=== PATIENT | female | born 1945 | race Caucasian/White ===

== ENCOUNTER → 2016-12-31 | Outpatient (CLI) | payer MEDICARE, BC ==
[~2016-12-31] VITALS: Ht 172.7 cm; Wt 111.6 kg
[~2016-12-31] MED LIST: /ESCI20TA PO; /ONDA4TA OR; /WARF25TA OR; /WARF5TA OR; ACET65TA OR; ACETAMINOPHEN TAB 650MG DOSE (2X325MG) PO PRN; AMBI5TAB PO; AMITIZA OR; BUPR150T3 PO; EPIDURAL/PCA KEYS XX PRN; FLEET ENEMA PR PRN; LEVO175T2 PO; LEVO75TA2 OR; LEXA1TAB PO; LIDOCAINE 2% INJ 100 MG/5 ML SDV (FOR ANES.) As Ordered ONE; LR 1,000 ML IV SCH; LUNE2TAB OR; MORPHINE PCA 1MG/ML 100ML CADD IV PRN; NALBUPHINE HCL 10 MG/ML AMP (J2300) IV PRN; NALOXONE INJ 0.4 MG/1 ML VIAL (J2310) IV PRN; NS 1,000 ML IV SCH; ONDANSETRON 4MG/2ML VIAL (J2405) IV PRN; PERC5TAB8 OR; PERC7.5T8 OR; PROPOFOL 200 MG/20 ML VIAL As Ordered ONE; SYMB80AE IN; TRILIPIX OR; VICO5TAB PO; WARFARIN SOD 5 MG TAB PO SCH; diphenhydrAMINE INJ 50MG/ML VIAL (J1200) IV PRN; meloxicam PO; symbicort INH
--- NOTE | 2016-12-31 11:50 | ROOR ---
Patient Name: Katya Bocanegra Procedure Date: 12/31/2016 11:32 AM Date of : 1945 Age: 71 Room: [facility] Gender: Female Note Status: Finalized Procedure: Upper GI endoscopy Indications: Chest pain (non cardiac), (resolved) Providers: Ender VELÁZQUEZ MD Referring MD: MATT NEVES NP Requesting Provider: Medicines: Monitored Anesthesia Care Complications: No immediate complications. Procedure: Pre-Anesthesia Assessment: - The heart rate, respiratory rate, oxygen saturations, blood pressure, adequacy of pulmonary ventilation, and response to care were monitored throughout the procedure. The Endoscope was introduced through the mouth, and advanced to the second part of duodenum. The upper GI endoscopy was accomplished without difficulty. The patient tolerated the procedure well. Findings: Mildly severe esophagitis was found 37 cm from the incisors. Biopsies were taken with a cold forceps for histology. The exam of the esophagus was otherwise normal. The entire examined stomach was normal. There was a lipoma in the second portion of the duodenum. Biopsies were taken with a cold forceps for histology. Mild inflammation characterized by erythema was found in the second portion of the duodenum. Biopsies were taken with a cold forceps for histology. Impression: - Mild reflux esophagitis. Biopsied. - Normal stomach. - Duodenal lipoma. Biopsied. - Mild Duodenitis. Biopsied. Recommendation: - Telephone endoscopist for pathology results in 2 weeks. - Use Prilosec (omeprazole) 40 mg PO daily for 3 months. Ender Velázquez MD Ender VELÁZQUEZ MD 12/31/2016 11:50:04 AM This report has been signed electronically. Number of Addenda: 0 Note Initiated On: 12/31/2016 11:32 AM Estimated Blood Loss: Estimated blood loss: none.
--- NOTE | 2016-12-31 12:11 | ROOR ---
Patient Name: Katya Bocanegra Procedure Date: 12/31/2016 11:33 AM Date of : 1945 Age: 71 Room: [facility] Gender: Female Note Status: Finalized Procedure: Colonoscopy Indications: High risk colon cancer surveillance: Personal history of colonic polyps, Last colonoscopy: August 2011 Providers: Ender VELÁZQUEZ MD Referring MD: MATT NEVES NP Requesting Provider: Medicines: Monitored Anesthesia Care Complications: No immediate complications. Procedure: Pre-Anesthesia Assessment: - The heart rate, respiratory rate, oxygen saturations, blood pressure, adequacy of pulmonary ventilation, and response to care were monitored throughout the procedure. The Colonoscope was introduced through the anus and advanced to the cecum, identified by appendiceal orifice and ileocecal valve. The colonoscopy was performed without difficulty. The patient tolerated the procedure well. The quality of the bowel preparation was good. Findings: The perianal and digital rectal examinations were normal. (Exam: Complete, Prep: Good or Excellent.) Two sessile polyps were found in the ascending colon. The polyps were 4 to 5 mm in size. These polyps were removed with a cold snare. Resection and retrieval were complete. Multiple small and large-mouthed diverticula were found in the sigmoid colon. Internal hemorrhoids were found during retroflexion. The hemorrhoids were moderate. Impression: - (Exam: Complete, Prep: Good or Excellent.) - Two 4 to 5 mm polyps in the ascending colon, removed with a cold snare. Resected and retrieved. - Diverticulosis in the sigmoid colon. - Small internal hemorrhoids. - The examination was otherwise normal. Recommendation: - Repeat colonoscopy in 5 years for surveillance. Ender Velázquez MD Ender VELÁZQUEZ MD 12/31/2016 12:11:21 PM This report has been signed electronically. Number of Addenda: 0 Note Initiated On: 12/31/2016 11:33 AM Estimated Blood Loss: Estimated blood loss: none.
[2016-12-31 12:35] VITALS: BP 157/77
== END | disposition home or self-care (01) ==
LOC: M OPP 10:33
PROVIDERS: ATTEND Internal Medicine Gastroenterology
DX: Z12.11 Encounter for screening for malignant neoplasm of colon (principal); D12.2 Benign neoplasm of ascending colon; K57.30 Diverticulosis of large intestine without perforation or abscess without bleeding; K64.8 Other hemorrhoids; K20.9 Esophagitis, unspecified; D13.2 Benign neoplasm of duodenum; K29.80 Duodenitis without bleeding; I05.9 Rheumatic mitral valve disease, unspecified; M19.90 Unspecified osteoarthritis, unspecified site; E03.9 Hypothyroidism, unspecified; L71.9 Rosacea, unspecified; L40.9 Psoriasis, unspecified; F33.9 Major depressive disorder, recurrent, unspecified; F41.9 Anxiety disorder, unspecified; Z87.891 Personal history of nicotine dependence; Z79.899 Other long term (current) drug therapy; Z88.8 Allergy status to other drugs, medicaments and biological substances; Z88.1 Allergy status to other antibiotic agents; Z91.048 Other nonmedicinal substance allergy status

== ENCOUNTER 2017-06-27 07:16 | Day surgery (SDC) | payer MEDICARE, BC ==
[~2017-06-27] VITALS: Ht 172.7 cm; Wt 111.6 kg
[~2017-06-27 07:16] MED LIST changes: -ACETAMINOPHEN TAB 650MG DOSE (2X325MG) PO PRN; +ALPR0.5T3 PO; -EPIDURAL/PCA KEYS XX PRN; -FLEET ENEMA PR PRN; +LEVO2TA PO; -LIDOCAINE 2% INJ 100 MG/5 ML SDV (FOR ANES.) As Ordered ONE; -LR 1,000 ML IV SCH; -MORPHINE PCA 1MG/ML 100ML CADD IV PRN; -NALBUPHINE HCL 10 MG/ML AMP (J2300) IV PRN; -NALOXONE INJ 0.4 MG/1 ML VIAL (J2310) IV PRN; -NS 1,000 ML IV SCH; +OMEP40CA2 PO; -ONDANSETRON 4MG/2ML VIAL (J2405) IV PRN; -PROPOFOL 200 MG/20 ML VIAL As Ordered ONE; -WARFARIN SOD 5 MG TAB PO SCH; -diphenhydrAMINE INJ 50MG/ML VIAL (J1200) IV PRN
[2017-06-27] MEDS ORDERED: LIDOCAINE 1% SDV 5 ML VIAL SC ONE (07:30)
[2017-06-27] MEDS ORDERED: LR 1,000 ML IV SCH ×2 (07:30→11:00)
[2017-06-27] MEDS ORDERED: SUCCINYLCHOLINE 100 MG/5 ML SYRINGE (J0330) As Ordered ONE (08:52)
[2017-06-27] MEDS ORDERED: MIDAZOLAM INJ 2 MG/2 ML VIAL (J2250) As Ordered ONE (08:52)
[2017-06-27] MEDS ORDERED: PROPOFOL 200 MG/20 ML VIAL As Ordered ONE (08:52)
[2017-06-27] MEDS ORDERED: LIDOCAINE 2% INJ 100 MG/5 ML SDV (FOR ANES.) As Ordered ONE (08:52)
[2017-06-27] MEDS ORDERED: fentaNYL 100 MCG/2 ML INJECTION (J3010) As Ordered ONE (08:53)
--- NOTE | 2017-06-27 10:27 | ROOR ---
Patient Name: Katya Bocanegra Procedure Date: 06/27/2017 9:38 AM Date of : 1945 Age: 71 Room: [facility] Gender: Female Note Status: Finalized Procedure: Upper GI endoscopy Indications: For therapy of Carl's esophagus, Carl's low grade dysplasia Providers: Ender VELÁZQUEZ MD Referring MD: MATT NEVES NP, Ilana MOSER MD Requesting Provider: Medicines: General Anesthesia Complications: No immediate complications. Procedure: Pre-Anesthesia Assessment: - The heart rate, respiratory rate, oxygen saturations, blood pressure, adequacy of pulmonary ventilation, and response to care were monitored throughout the procedure. The Endoscope was introduced through the mouth, and advanced to the second part of duodenum. The upper GI endoscopy was accomplished without difficulty. The patient tolerated the procedure well. 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 The maximum longitudinal extent of these mucosal changes was 2 cm in length. Circumferential radiofrequency ablation of Carl's esophagus was performed using the Barrx 360 Express catheter and balloon-based endoscopic ablation system. With the endoscope in place, the position and extent of the Carl's mucosa and the anatomic landmarks were noted. Endoscopic visualization identified an ablation site including the entire visible Carl's segment. The Carl's mucosa was irrigated with water. Gastric and esophageal contents were suctioned. A guidewire was passed down the biopsy channel of the endoscope. As the endoscope was withdrawn from the mouth, the guidewire was left in place. An auto-sizing radiofrequency ablation balloon catheter was passed transorally over the guidewire into the esophagus. The endoscope was introduced in a [id number] manner with the ablation catheter. Under direct endoscopic visualization, the balloon ablation catheter was positioned so that the proximal edge of the electrode was slightly above the proximal edge of the Carl's mucosa. The balloon was automatically inflated, and energy was applied at 10 J/cm2. The balloon electrode was moved 4 cm distally, so that the proximal edge of the electrode was aligned with the distal edge of the ablation zone. The process of balloon inflation and ablation was repeated until the top of the gastric folds was reached. The ablation catheter and guidewire were removed, and the balloon was cleaned. The ablation zone was then cleaned of overlying coagulative debris using irrigation and suction via the endoscope and a cleaning cap. The guidewire was reinserted, and then the ablation catheter was reintroduced into the esophagus over the wire. The ablation catheter was positioned under direct endoscopic visualization so that the proximal edge of the electrode was at the proximal edge of the ablation zone. Reinflation and a second round of ablation were performed with the application of 10 J/cm2 to re-treat the Carl's epithelium already treated with the first round of ablation. The ablation catheter and guidewire were then removed. The areas of the esophagus where Carl's mucosa had been ablated were then examined with the endoscope. Areas of visible Carl's esophagus were completely ablated. The exam was otherwise without abnormality. Impression: - Esophageal mucosal changes secondary to established short-segment Carl's disease. from 41 to 39 cm fron incisors. Barretts is smooth, without nodularity. Treated with radiofrequency ablation. - The examination was otherwise normal. - No specimens collected. Recommendation: - Repeat upper endoscopy in 2 months for retreatment. - Use Prilosec (omeprazole) 40 mg PO BID indefinitely. - My Office will call you shortly to re-schedule for the next treatment session. Start a full liquid diet today. Eat a soft diet for one week. Continue your usual Reflux medication twice a day indefinitely. You may not need pain medications, but I would recommend you fill the scripts provided, just in case: 1) Viscous Lidocaine 2%- 10 ml every 4 hrs as needed for modeate chest pain. 2) Carafate suspension-10 ml every 6-8 hrs for 1 month. Ender Velázquez MD Ender VELÁZQUEZ MD 06/27/2017 10:27:31 AM This report has been signed electronically. Number of Addenda: 0 Note Initiated On: 06/27/2017 9:38 AM Estimated Blood Loss: Estimated blood loss: none.
[2017-06-27] MEDS ORDERED: ONDANSETRON 4MG/2ML VIAL (J2405) IV PRN (11:00)
[2017-06-27] MEDS ORDERED: PERCOCET 5MG/325MG TAB PO PRN (11:00)
[2017-06-27] MEDS ORDERED: fentaNYL 100 MCG/2 ML INJECTION (J3010) IV PRN (11:00)
[2017-06-27 11:55] VITALS: BP 164/70
== END 2017-06-27 12:05 | disposition home or self-care (01) ==
LOC: M SDC 07:16 → EDSTATUS 08:25 → M SDC 12:05
PROVIDERS: ATTEND Internal Medicine Gastroenterology
DX: K22.710 Barrett's esophagus with low grade dysplasia (principal); E03.9 Hypothyroidism, unspecified; M12.9 Arthropathy, unspecified; M54.9 Dorsalgia, unspecified; L71.9 Rosacea, unspecified; F41.9 Anxiety disorder, unspecified; F32.9 Major depressive disorder, single episode, unspecified; R06.83 Snoring; J45.909 Unspecified asthma, uncomplicated; I35.9 Nonrheumatic aortic valve disorder, unspecified; G47.30 Sleep apnea, unspecified; J30.2 Other seasonal allergic rhinitis; Z88.1 Allergy status to other antibiotic agents; Z88.8 Allergy status to other drugs, medicaments and biological substances; Z91.09 Other allergy status, other than to drugs and biological substances; Z91.048 Other nonmedicinal substance allergy status; Z79.899 Other long term (current) drug therapy; Z90.710 Acquired absence of both cervix and uterus; Z96.1 Presence of intraocular lens; Z96.641 Presence of right artificial hip joint; Z96.652 Presence of left artificial knee joint
CPT/HCPCS: 43270; J0330; J2250; J2405; J3010

== ENCOUNTER → 2017-07-10 | Outpatient (CLI) | payer MEDICARE, BC ==
--- NOTE | 2017-07-10 11:21 | REP ---
MAXILLOFACIAL CT WITHOUT CONTRAST: HISTORY: Smell disturbance. Diffuse sinus mucosal thickening is present. There is almost complete opacification of the frontal , ethmoid and right maxillary sinuses. Mild mucosal thickening is present in the left maxillary sinus. Minimal mucosal thickening is present in the left sphenoid sinus. The right sphenoid sinus is clear. Mucosal thickening involves the osteomeatal units. The uncinate processes are incompletely seen. This is due to previous surgery or demineralization secondary to chronic inflammatory disease. The middle and inferior nasal turbinates are partially paradoxical. There is mild deviation of the nasal septum to the left. The nasal septum abuts the left middle nasal turbinate. A spur is present arising from the left side of the nasal septum. The spur abuts the left middle and inferior nasal turbinates. A spur is present arising from the right side of the nasal septum. The spur abuts the right middle nasal turbinate. The cribriform plate, medial nair of the orbits and optic canals are intact. The carotid canals do not form a segment of the nair of the sphenoid sinus. Soft tissue densities are present in the nasal passage consistent with polyps. IMPRESSION: 1. Sinus mucosal thickening as described above. 2. There are soft tissue densities in the nasal passage consistent with polyps. Signed by Richard Burrows MD 07/10/2017 11:30 A
== END ==
LOC: M RAD 10:34
PROVIDERS: ATTEND Otolaryngology
DX: R43.9 Unspecified disturbances of smell and taste (principal)

== ENCOUNTER 2017-12-03 06:01 | Day surgery (SDC) | payer MEDICARE, BC ==
[2017-12-03] MEDS: LR 1,000 ML IV ×2 (06:30→12:15)
[2017-12-03] MEDS ORDERED: ROCURONIUM BROMIDE 50 MG/5 ML VIAL As Ordered (07:06)
[2017-12-03] MEDS ORDERED: PROPOFOL 200 MG/20 ML VIAL As Ordered ×2 (07:06→09:52)
[2017-12-03] MEDS ORDERED: LIDOCAINE 2% INJ 100 MG/5 ML SDV (FOR ANES.) As Ordered (07:06)
[2017-12-03] MEDS ORDERED: fentaNYL 250 MCG/5 ML INJECTION (J3010) As Ordered ×2 (07:07→09:22)
[2017-12-03] MEDS ORDERED: MIDAZOLAM INJ 2 MG/2 ML VIAL (J2250) As Ordered (07:07)
[2017-12-03] MEDS: LIDOCAINE W/EPINEPHRINE 1% 20ML VIAL As Ordered ×2 (08:51→08:54)
[2017-12-03] MEDS: EPINEPHrine 1MG/ML INJ 30ML MD-VIAL As Ordered ×2 (08:52→08:53)
[2017-12-03] MEDS: METHYLENE BLUE 0.5% (5MG/ML) 10 ML AMP (PROVAYBLUE)(Q9968 PER 1MG) As Ordered (08:52)
[2017-12-03] MEDS: dexameTHASONE 4 MG/ML 1ML VIAL (J1100) IV (08:53)
[2017-12-03] MEDS ORDERED: HYDROmorphone HCL 2 MG/ML 1ML VIAL (J1170) As Ordered (09:38)
[2017-12-03] MEDS ORDERED: NEOSTIGMINE 10 MG/10 ML VIAL (J2710) As Ordered (09:41)
[2017-12-03] MEDS ORDERED: ONDANSETRON 4MG/2ML VIAL (J2405) As Ordered (09:41)
[2017-12-03] MEDS ORDERED: GLYCOPYRROLATE INJ 0.2 MG/ML 2 ML VIAL As Ordered (09:41)
[2017-12-03] MEDS ORDERED: LABETALOL HCL 100 MG/20 ML VIAL As Ordered (10:15)
[2017-12-03] MEDS ORDERED: PHENYLephrine HCL 500 MCG/5 ML (100MCG/ML) SYRINGE (J2370) As Ordered (10:31)
[2017-12-03] MEDS ORDERED: MEPERIDINE INJ 25 MG/ML VIAL (J2175) IV (12:15)
[2017-12-03] MEDS ORDERED: KETOROLAC 30 MG/ML VIAL (J1885) IV (12:15)
[2017-12-03] MEDS ORDERED: ONDANSETRON 4MG/2ML VIAL (J2405) IV (12:15)
[2017-12-03] MEDS ORDERED: LR 1,000 ML IV (12:30)
[2017-12-03] MEDS: PERCOCET 5MG/325MG TAB PO ×2 (12:39→13:10)
[2017-12-03] MEDS: fentaNYL 100 MCG/2 ML INJECTION (J3010) IV ×2 (12:50→12:55)
== END 2017-12-03 15:12 | disposition home or self-care (01) ==
LOC: M SDC 06:01
DX: J34.2 Deviated nasal septum (principal); J32.0 Chronic maxillary sinusitis; J32.2 Chronic ethmoidal sinusitis; J32.1 Chronic frontal sinusitis; E03.9 Hypothyroidism, unspecified; I34.1 Nonrheumatic mitral (valve) prolapse; K22.70 Barrett's esophagus without dysplasia; K58.9 Irritable bowel syndrome, unspecified; M19.90 Unspecified osteoarthritis, unspecified site; M54.9 Dorsalgia, unspecified; L71.9 Rosacea, unspecified; F41.9 Anxiety disorder, unspecified; F32.9 Major depressive disorder, single episode, unspecified; J45.909 Unspecified asthma, uncomplicated; G47.30 Sleep apnea, unspecified; Z88.8 Allergy status to other drugs, medicaments and biological substances; Z88.1 Allergy status to other antibiotic agents; Z88.3 Allergy status to other anti-infective agents; Z91.048 Other nonmedicinal substance allergy status
CPT/HCPCS: 30520

== ENCOUNTER 2018-01-09 05:47 | Day surgery (SDC) | payer MEDICARE, BC ==
[2018-01-09] MEDS ORDERED: LIDOCAINE 1% MDV 20ML VIAL SQ (06:30)
[2018-01-09] MEDS: LR 1,000 ML IV (07:15)
[2018-01-09] MEDS ORDERED: fentaNYL 100 MCG/2 ML INJECTION (J3010) As Ordered (07:23)
[2018-01-09] MEDS ORDERED: MIDAZOLAM INJ 2 MG/2 ML VIAL (J2250) As Ordered (07:23)
[2018-01-09] MEDS ORDERED: ONDANSETRON 4MG/2ML VIAL (J2405) As Ordered (07:23)
[2018-01-09] MEDS ORDERED: METOCLOPRAMIDE INJ 10MG/2ML VIAL (J2765) As Ordered (07:23)
[2018-01-09] MEDS ORDERED: PROPOFOL 200 MG/20 ML VIAL As Ordered (07:24)
[2018-01-09] MEDS ORDERED: LIDOCAINE 2% INJ 100 MG/5 ML SDV (FOR ANES.) As Ordered (07:24)
[2018-01-09] MEDS ORDERED: SUCCINYLCHOLINE 100 MG/5 ML SYRINGE (J0330) As Ordered (07:24)
[2018-01-09] MEDS ORDERED: ROCURONIUM BROMIDE 50 MG/5 ML VIAL As Ordered (07:24)
[2018-01-09] MEDS ORDERED: SIMETHICONE 40MG/0.6ML DROPS 30ML As Ordered (07:25)
[2018-01-09] MEDS: ACETYLCYSTEINE 20% 30 ML VIAL As Ordered (08:01)
[2018-01-09] MEDS ORDERED: KETAMINE HCL 200 MG/20 ML VIAL As Ordered (08:07)
[2018-01-09] MEDS ORDERED: PERCOCET 5MG/325MG TAB PO (08:45)
[2018-01-09] MEDS ORDERED: LR 1,000 ML IV (08:45)
[2018-01-09] MEDS ORDERED: fentaNYL 100 MCG/2 ML INJECTION (J3010) IV (08:45)
[2018-01-09] MEDS: ONDANSETRON 4MG/2ML VIAL (J2405) IV (09:40)
== END 2018-01-09 10:15 | disposition home or self-care (01) ==
LOC: M SDC 05:47
DX: K22.710 Barrett's esophagus with low grade dysplasia (principal); D17.9 Benign lipomatous neoplasm, unspecified; E03.9 Hypothyroidism, unspecified; J45.909 Unspecified asthma, uncomplicated; F32.9 Major depressive disorder, single episode, unspecified; K58.9 Irritable bowel syndrome, unspecified; M19.90 Unspecified osteoarthritis, unspecified site; L71.9 Rosacea, unspecified; L40.9 Psoriasis, unspecified; F41.9 Anxiety disorder, unspecified; R51 Headache; G47.30 Sleep apnea, unspecified; Z88.8 Allergy status to other drugs, medicaments and biological substances; Z88.3 Allergy status to other anti-infective agents; Z91.048 Other nonmedicinal substance allergy status; Z88.1 Allergy status to other antibiotic agents; Z79.899 Other long term (current) drug therapy
CPT/HCPCS: 43270

== ENCOUNTER → 2020-10-05 | Outpatient (REF) | payer MEDICARE, BC ==
[~2020-10-05] MED LIST changes: -/ESCI20TA PO; -/ONDA4TA OR; -/WARF25TA OR; -/WARF5TA OR; +AMOX500T PO; +COUM1TAB17 OR; +COUM1TAB18 OR; +FLUTISP; +LEXA1TAB2 PO; +LOTE0.5S OU; -OMEP40CA2 PO; +OMEP40CA97 PO; +ONDA-1 OR; +XIID5DRO OU
== END ==
LOC: M LAB REF 13:09
PROVIDERS: ATTEND Radiology Diagnostic Radiology
DX: D24.2 Benign neoplasm of left breast (principal)

== ENCOUNTER → 2021-02-26 | Outpatient (CLI) | payer MEDICARE, BC ==
[~2021-02-26] MED LIST changes: +BUPR150T12 PO; -BUPR150T3 PO
--- NOTE | 2021-02-26 17:12 | REP ---
INDICATION: PAIN IN RIGHT FINGER(S) COMPARISON: None. TECHNIQUE: Four views right 5th digit. FINDINGS: There is no evidence of acute fracture, dislocation, or intrinsic bone disease.There is mild spurring of the base of the distal phalanx. IMPRESSION: No fracture or dislocation. Mild spurring base of distal phalanx. <Electronically signed by Orville Corea > 02/26/21 [id number]
== END ==
LOC: M RAD 15:46
PROVIDERS: ATTEND Physician Assistant
DX: M79.644 Pain in right finger(s) (principal)

== ENCOUNTER → 2021-04-20 | Outpatient (CLI) | payer MEDICARE, BC | LOC: M LABSMTC 10:34 | PROVIDERS: ATTEND Ophthalmology | DX: Z01.812 Encounter for preprocedural laboratory examination (principal); Z20.822 Contact with and (suspected) exposure to COVID-19 ==

== ENCOUNTER → 2021-05-01 | Outpatient (CLI) | payer MEDICARE, BC ==
--- NOTE | 2021-05-01 13:14 | REPPI ---
INDICATION: L40.0 PSORIASIS VULGARIS. COMPARISON: Portable examination of 08/12/2016 TECHNIQUE: PA and lateral FINDINGS: The superior mediastinal structures are midline. The cardiac silhouette is unremarkable in size, shape, and position. The diaphragmatic surfaces of the lungs are regular, and the costophrenic angles are clear. The pulmonary gross are clear. The imaged osseous structures are intact. IMPRESSION: There is no acute cardiopulmonary disease. <Electronically signed by Abelino Guardado > 05/01/21 [id number]
== END ==
LOC: M PLAIMG 12:08
PROVIDERS: ATTEND Nurse Practitioner
DX: L40.0 Psoriasis vulgaris (principal)

== ENCOUNTER → 2021-10-25 | Outpatient (CLI) | payer MEDICARE, BC ==
[~2021-10-25] MED LIST changes: +OMEP40CA4 PO; -OMEP40CA97 PO
--- NOTE | 2021-10-25 11:13 | REPVR ---
PROCEDURE INFORMATION: Exam: CT Lumbar Spine Without Contrast Exam date and time: 10/25/2021 10:28 AM Age: 76 years old Clinical indication: Low back pain; Additional info: Pain in RT hip, RT shoulder pain, lbp pain TECHNIQUE: Imaging protocol: Computed tomography images of the lumbar spine without contrast. Radiation optimization: All CT scans at this facility use at least one of these dose optimization techniques: automated exposure control; mA and/or kV adjustment per patient size (includes targeted exams where dose is matched to clinical indication); or iterative reconstruction. COMPARISON: No relevant prior studies available. FINDINGS: Vertebrae: There is 4 mm of grade 1 retrolisthesis of L3 with respect to L4 and L5 with respect to S1. Normal vertebral body alignment is otherwise preserved. There is an L2 superior endplate fracture with minimal loss of height. No other fractures are identified. Discs/Spinal canal/Neural foramina: There is multilevel degenerative disc disease and spondylosis. At L1/2, disc osteophyte complex and facet hypertrophy contribute to mild canal stenosis. At L2/3, disc osteophyte complex and facet hypertrophy contribute to mild canal stenosis and mild bilateral neural foraminal narrowing. At L3/4, disc osteophyte complex/uncovering related to listhesis and facet hypertrophy contribute to moderate right and mild left neural foraminal narrowing and moderate canal stenosis. At L4/5, diffuse disc osteophyte complex and facet hypertrophy contribute to mild right and moderate left neural foraminal narrowing and mild canal stenosis. At L5/S1, disc osteophyte complex and facet hypertrophy contribute to moderate bilateral neural foraminal narrowing. Soft tissues: Unremarkable. IMPRESSION: 1. L2 superior endplate fracture with minimal loss of height. 2. Multilevel degenerative disc disease and spondylosis. Electronically signed by: Clementina Stovall On 10/25/2021 11:13:26 AM
--- NOTE | 2021-10-25 11:23 | REP ---
INDICATION: PAIN IN RT HIP, RT SHOULDER PAIN, LBP PAIN. COMPARISON: None. TECHNIQUE: Axial noncontrast images through the right shoulder with coronal and sagittal reformations. FINDINGS: Moderate age-related degenerative changes include subchondral cystic changes along with subtle cortical irregularity and mild spurring/osteophyte formation as well as mild joint space narrowing. Periarticular calcifications are also identified at the acromioclavicular joint. There is no obvious acute fracture or dislocation. No obvious joint effusion. Surrounding musculature appears intact and essentially normal. 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 No obvious acute fracture. <Electronically signed by Vega Yu > 10/25/21 [id number]
--- NOTE | 2021-10-25 11:27 | REP ---
INDICATION: PAIN IN RT HIP, RT SHOULDER PAIN, LBP PAIN. COMPARISON: None. TECHNIQUE: Axial noncontrast images through the right hip including metallic artifact reduction sequence as well as coronal and sagittal reformations. FINDINGS: Evidence for prior right hip replacement. Underlying age-related osteopenia and degenerative changes noted. No obvious acute fracture. No obvious effusion. Surrounding subcutaneous tissues and musculature appear essentially normal. IMPRESSION: Prior right hip replacement. Underlying osteopenia and age-related changes. No evidence for acute fracture or dislocation. <Electronically signed by Vega Yu > 10/25/21 [id number]
== END ==
LOC: M RAD 09:57
PROVIDERS: ATTEND Physician Assistant Surgical
DX: S32.029A Unspecified fracture of second lumbar vertebra, initial encounter for closed fracture (principal); M25.511 Pain in right shoulder; M54.50 Low back pain, unspecified; Z96.641 Presence of right artificial hip joint

== ENCOUNTER → 2022-02-07 | Outpatient (CLI) | payer MEDICARE, BC ==
[~2022-02-07] MED LIST changes: +GASTROGRAFIN SOLUTION 30ML (Q9963) ONE; +ISOVUE-370 76% 100ML VIAL ONE
== END ==
LOC: M PLAIMG 12:16
PROVIDERS: ATTEND Registered Nurse
DX: R93.5 Abnormal findings on diagnostic imaging of other abdominal regions, including retroperitoneum (principal); R11.2 Nausea with vomiting, unspecified; R19.4 Change in bowel habit; R63.4 Abnormal weight loss
CPT/HCPCS: 74178; Q9963; Q9967

== ENCOUNTER 2022-02-21 07:16 | Emergency (ER) | payer MEDICARE, BC ==
[~2022-02-21] VITALS: Ht 170.2 cm; Wt 111.4 kg
[~2022-02-21 07:16] MED LIST changes: -GASTROGRAFIN SOLUTION 30ML (Q9963) ONE; -ISOVUE-370 76% 100ML VIAL ONE
[2022-02-21] MEDS ORDERED: BOOSTRIX/ADACEL VACCINE (DIPHTH/PERTUSS/ACELL/TETANUS) 0.5ML SYR IM ONE (08:30)
[2022-02-21] MEDS ORDERED: NORCO, ANEXSIA 5/325MG TABLET (HYDROcodone/ACETAMINOPHEN) PO ONE (08:30)
[2022-02-21 09:45] VITALS: BP 142/68
== END 2022-02-21 09:46 | disposition home or self-care (01) ==
LOC: M ED 07:16
DX: S01.01XA Laceration without foreign body of scalp, initial encounter (principal); S20.229A Contusion of unspecified back wall of thorax, initial encounter; W18.30XA Fall on same level, unspecified, initial encounter; Y92.012 Bathroom of single-family (private) house as the place of occurrence of the external cause; J45.909 Unspecified asthma, uncomplicated; E07.9 Disorder of thyroid, unspecified; F33.9 Major depressive disorder, recurrent, unspecified; I34.1 Nonrheumatic mitral (valve) prolapse; Z88.1 Allergy status to other antibiotic agents; Z88.8 Allergy status to other drugs, medicaments and biological substances; Z91.048 Other nonmedicinal substance allergy status; Z79.899 Other long term (current) drug therapy; Z79.890 Hormone replacement therapy

== ENCOUNTER → 2022-02-22 | Outpatient (CLI) | payer MEDICARE, BC ==
[2022-02-22 12:13] LABS: PLATELET COUNT, AUTOMATED 244 10^3/uL (150-450)
[2022-02-22 12:24] LABS: PROTHROMBIN TIME 13.6 SECONDS (12.7-14.5)
[2022-02-22 12:57] LABS: COLLAGEN EPINEPHRINE 131 SECONDS (74-162)
== END ==
LOC: M LAB 11:20
PROVIDERS: ATTEND Physician Assistant Surgical
DX: M51.36 Other intervertebral disc degeneration, lumbar region (principal); Z79.01 Long term (current) use of anticoagulants

== ENCOUNTER → 2022-03-20 | Outpatient (CLI) | payer MEDICARE, BC ==
[~2022-03-20] MED LIST changes: +PROHANCE 279.3MG/ML 15ML VIAL As Ordered ONE; +PROHANCE 279.3MG/ML 5ML VIAL As Ordered ONE
== END ==
LOC: M RAD 14:33
PROVIDERS: ATTEND Registered Nurse
DX: R93.5 Abnormal findings on diagnostic imaging of other abdominal regions, including retroperitoneum (principal)
CPT/HCPCS: 72197; A9576

== ENCOUNTER → 2022-04-04 | Outpatient (CLI) | payer MEDICARE, BC ==
[~2022-04-04] MED LIST changes: -PROHANCE 279.3MG/ML 15ML VIAL As Ordered ONE; -PROHANCE 279.3MG/ML 5ML VIAL As Ordered ONE
== END ==
LOC: M WHC 08:16
PROVIDERS: ATTEND Registered Nurse
DX: N64.4 Mastodynia (principal); Z78.0 Asymptomatic menopausal state; Z80.9 Family history of malignant neoplasm, unspecified
CPT/HCPCS: 77066; G0279

== ENCOUNTER → 2022-05-16 | Outpatient (REF) | payer MEDICARE, BC ==
[2022-05-16 13:44] LABS: HEPATITIS C VIRUS ABY INDEX 0.1 INDEX (<0.8)
[2022-05-16 14:50] LABS: HIV 1&2 SCREEN CENTAUR NEGATIVE (NEGATIVE)
== END ==
LOC: M LAB REF 11:59
PROVIDERS: ATTEND Internal Medicine
DX: L40.0 Psoriasis vulgaris (principal)

== ENCOUNTER → 2022-05-17 | Outpatient (CLI) | payer MEDICARE, BC | LOC: M RAD 10:58 | PROVIDERS: ATTEND Family Medicine | DX: L40.0 Psoriasis vulgaris (principal) ==

== ENCOUNTER → 2022-06-21 | Outpatient (CLI) | payer MEDICARE, BC | LOC: M RAD 12:42 | PROVIDERS: ATTEND Obstetrics & Gynecology | DX: D39.10 Neoplasm of uncertain behavior of unspecified ovary (principal) ==

== ENCOUNTER → 2022-08-13 | Outpatient (CLI) | payer MEDICARE, BC | LOC: M LAB 12:45 | PROVIDERS: ATTEND Obstetrics & Gynecology Obstetrics | DX: R19.00 Intra-abdominal and pelvic swelling, mass and lump, unspecified site (principal) ==

== ENCOUNTER → 2022-11-06 | Outpatient (CLI) | payer MEDICARE, BC | LOC: M RAD 09:43 | PROVIDERS: ATTEND Registered Nurse | DX: M79.641 Pain in right hand (principal) ==

== ENCOUNTER → 2022-11-06 | Outpatient (CLI) | payer MEDICARE, BC ==
[2022-11-06 11:06] LABS: BLOOD UREA NITROGEN 18 MG/DL (9-23); CREATININE FOR GFR 0.72 MG/DL (0.55-1.30); GLOMERULAR FILTRATION RATE > 60.0 (>39)
== END ==
LOC: M LAB 09:47
PROVIDERS: ATTEND Physical Medicine & Rehabilitation
DX: M51.36 Other intervertebral disc degeneration, lumbar region (principal); M51.26 Other intervertebral disc displacement, lumbar region; M47.896 Other spondylosis, lumbar region

== ENCOUNTER → 2022-11-15 | Outpatient (CLI) | payer MEDICARE, BC | LOC: M PLARAD 12:17 | PROVIDERS: ATTEND Physical Medicine & Rehabilitation | DX: M51.36 Other intervertebral disc degeneration, lumbar region (principal) ==

== ENCOUNTER → 2023-01-30 | Outpatient (CLI) | payer MEDICARE, BC ==
[2023-01-30 12:15] LABS: FOLATE 13.7 NG/ML (>5.4)
[2023-01-30 12:18] LABS: HEMOGLOBIN A1c 5.2 % (4.0-6.0)
== END ==
LOC: M LAB 10:20
PROVIDERS: ATTEND Psychiatry & Neurology Neurology
DX: E11.21 Type 2 diabetes mellitus with diabetic nephropathy (principal)

== ENCOUNTER → 2023-04-17 | Outpatient (CLI) | payer MEDICARE, BC ==
[~2023-04-17] MED LIST changes: +FLUT50SP17; -FLUTISP
[2023-04-19 18:08] LABS: IMMUNOTYPING SERUM IGA SO 262 mg/dL (64-422); IMMUNOTYPING SERUM IGM SO 320 mg/dL (26-217)
== END ==
LOC: M LAB 14:34
PROVIDERS: ATTEND Psychiatry & Neurology Neurology
DX: G62.9 Polyneuropathy, unspecified (principal)

== ENCOUNTER → 2023-05-23 | Outpatient (CLI) | payer MEDICARE, BC | LOC: M RAD 10:16 | PROVIDERS: ATTEND Nurse Practitioner Family | DX: L40.0 Psoriasis vulgaris (principal) ==

== ENCOUNTER → 2023-06-04 | Outpatient (CLI) | payer MEDICARE, BC | LOC: M WHC 14:17 | PROVIDERS: ATTEND Nurse Practitioner Family | DX: Z12.31 Encounter for screening mammogram for malignant neoplasm of breast (principal) ==

== ENCOUNTER → 2023-11-06 | Outpatient (CLI) | payer MEDICARE, BC ==
[~2023-11-06] MED LIST changes: +ALBU8.5H; +DOXY100C3; -FLUT50SP17; +FLUTISP; +FOLI1TAB11; +LEVO175T2; +LEXA1TAB; +LUBI24CA PO; +METH2.5T48; +PRED10TA2; +REFR0.5D8 OP; +ZOLP10TA2; +[UNRECOGNIZED DRUG - CODE] IV
== END ==
LOC: M WUC 12:43
PROVIDERS: ATTEND Nurse Practitioner Family
DX: R06.02 Shortness of breath (principal); R05.9 Cough, unspecified

== ENCOUNTER 2023-11-07 11:13 | Emergency (ER) | payer MEDICARE, BC ==
[~2023-11-07] VITALS: Ht 172.7 cm; Wt 108.2 kg
[~2023-11-07 11:13] MED LIST changes: -ALBU8.5H; -PRED10TA2
[2023-11-07] MEDS ORDERED: ALBU8.5H (11:52)
[2023-11-07] MEDS ORDERED: PRED10TA2 (11:52)
[2023-11-07] MEDS ORDERED: LEXA1TAB (11:52)
[2023-11-07] MEDS ORDERED: ALBUTEROL SULFATE 2.5MG/0.5ML INH NEB SOLN NEB ONE (11:55)
[2023-11-07] MEDS ORDERED: dexAMETHasone 20MG/5ML VIAL IV ONE (11:55)
[2023-11-07 12:27] LABS: BASO % 0.4 % (0.0-1.0); EOS # 0.1 10^3/uL (0.0-0.5); EOS % 0.9 % (0.0-3.0); HEMATOCRIT 43.4 % (36.0-47.0); LYMPH # 1.9 10^3/uL (1.5-5.0); LYMPH % 18.9 % (24.0-44.0); MEAN CORPUSCULAR HEMOGLOBIN 33.7 pg (27.0-33.0); MEAN CORPUSCULAR HGB CONC 34.6 g/dl (32.0-36.5); MEAN CORPUSCULAR VOLUME 97.5 fl (80.0-96.0); MONO % 9.6 % (2.0-8.0); NEUTROPHILS # 6.9 10^3/uL (1.5-8.5); NEUTROPHILS % 69.7 % (36.0-66.0); PLATELET COUNT, AUTOMATED 260 10^3/uL (150-450); RED BLOOD COUNT 4.45 10^6/uL (4.00-5.40); WHITE BLOOD COUNT 9.9 10^3/uL (4.0-10.0)
[2023-11-07 12:57] LABS: BLOOD UREA NITROGEN 23 MG/DL (9-23); CALCIUM LEVEL 9.6 MG/DL (8.3-10.6); CARBON DIOXIDE LEVEL 27 MMOL/L (20-31); CHLORIDE LEVEL 107 MMOL/L (98-107); CREATININE FOR GFR 0.64 MG/DL (0.55-1.30); GLOMERULAR FILTRATION RATE > 60.0 (>39); GLUCOSE, FASTING 119 MG/DL (74-106); POTASSIUM SERUM 3.7 MMOL/L (3.5-5.1); SODIUM LEVEL 142 MMOL/L (136-145)
[2023-11-07] MEDS ORDERED: ISOVUE-370 76% 100ML VIAL As Ordered ONE (13:02)
[2023-11-07 15:00] VITALS: BP 154/74; TEMP 97.9; O2SAT 94
== END 2023-11-07 15:23 | disposition home or self-care (01) ==
LOC: M ED 11:13 → EDBD 11:13 → M ED 15:23
DX: J98.01 Acute bronchospasm (principal); Z86.16 Personal history of COVID-19; I10 Essential (primary) hypertension; F41.9 Anxiety disorder, unspecified; J30.89 Other allergic rhinitis; D47.2 Monoclonal gammopathy; Z87.891 Personal history of nicotine dependence; Z82.49 Family history of ischemic heart disease and other diseases of the circulatory system; Z79.899 Other long term (current) drug therapy; Z88.1 Allergy status to other antibiotic agents; Z88.8 Allergy status to other drugs, medicaments and biological substances; Z91.89 Other specified personal risk factors, not elsewhere classified
CPT/HCPCS: 71275; 80048; 85025; 87486; 87581; 87633; 87798; 94640; 96374; 99284; J1100; Q9967

== ENCOUNTER → 2024-06-29 | Outpatient (CLI) | payer MEDICARE, BC ==
[~2024-06-29] MED LIST changes: +ALBU8.5H; +PRED10TA2
== END ==
LOC: M WHC 14:53
PROVIDERS: ATTEND Nurse Practitioner Family
DX: Z12.31 Encounter for screening mammogram for malignant neoplasm of breast (principal)

== ENCOUNTER → 2024-12-01 | Outpatient (CLI) | payer MEDICARE, BC | LOC: M PLAIMG 09:21 | PROVIDERS: ATTEND Nurse Practitioner Family | DX: M54.6 Pain in thoracic spine (principal); R07.89 Other chest pain ==

== ENCOUNTER → 2024-12-14 | Outpatient (CLI) | payer MEDICARE, BC | LOC: M RAD 12:08 | PROVIDERS: ATTEND Nurse Practitioner Family | DX: R10.12 Left upper quadrant pain (principal); R16.2 Hepatomegaly with splenomegaly, not elsewhere classified; K76.0 Fatty (change of) liver, not elsewhere classified; K57.90 Diverticulosis of intestine, part unspecified, without perforation or abscess without bleeding; I70.0 Atherosclerosis of aorta; K40.90 Unilateral inguinal hernia, without obstruction or gangrene, not specified as recurrent ==

== ENCOUNTER 2024-12-25 10:45 | Emergency (ER) | payer MEDICARE, BC ==
[~2024-12-25] VITALS: Ht 170.2 cm; Wt 106.8 kg
[2024-12-25] MEDS ORDERED: MAGN100T PO (11:12)
[2024-12-25] MEDS ORDERED: TRAM50TA2 (11:12)
[2024-12-25] MEDS ORDERED: GABA-1172 (11:12)
[2024-12-25] MEDS ORDERED: NYST15PO3 (11:12)
[2024-12-25] MEDS: FLEET OIL RETENTION ENEMA PR ONE (14:10)
[2024-12-25 15:50] VITALS: BP 150/72; TEMP 98; O2SAT 96
[2024-12-25] MEDS ORDERED: MIRA3350 PO (15:53)
[2024-12-25] MEDS ORDERED: COLA100C5 PO (15:53)
== END 2024-12-25 16:06 | disposition home or self-care (01) ==
LOC: M ED 10:45
DX: K59.00 Constipation, unspecified (principal); E03.9 Hypothyroidism, unspecified; F41.9 Anxiety disorder, unspecified; F32.A Depression, unspecified; Z79.899 Other long term (current) drug therapy; Z88.1 Allergy status to other antibiotic agents; Z88.8 Allergy status to other drugs, medicaments and biological substances; Z91.89 Other specified personal risk factors, not elsewhere classified

== ENCOUNTER 2024-12-28 13:22 | Emergency (ER) | payer MEDICARE, BC ==
[~2024-12-28] VITALS: Ht 170.2 cm; Wt 106.1 kg
[~2024-12-28 13:22] MED LIST changes: +COLA100C5 PO; +GABA-1172; +MAGN100T PO; +MIRA3350 PO; +NYST15PO3; +TRAM50TA2
[2024-12-28 15:36] LABS: BASO # 0.1 10^3/uL (0.0-0.2); BASO % 0.6 % (0.0-1.0); EOS # 0.1 10^3/uL (0.0-0.5); EOS % 0.8 % (0.0-3.0); HEMATOCRIT 48.3 % (36.0-47.0); HEMOGLOBIN 16.9 g/dl (12.0-15.5); LYMPH # 1.9 10^3/uL (1.5-5.0); LYMPH % 21.8 % (24.0-44.0); MEAN CORPUSCULAR HEMOGLOBIN 33.4 pg (27.0-33.0); MEAN CORPUSCULAR VOLUME 95.5 fl (80.0-96.0); MONO # 0.9 10^3/uL (0.0-0.8); MONO % 10.7 % (2.0-8.0); NEUTROPHILS # 5.7 10^3/uL (1.5-8.5); NEUTROPHILS % 65.9 % (36.0-66.0); PLATELET COUNT, AUTOMATED 246 10^3/uL (150-450); RED BLOOD COUNT 5.06 10^6/uL (4.00-5.40); WHITE BLOOD COUNT 8.7 10^3/uL (4.0-10.0)
[2024-12-28 16:00] LABS: BILIRUBIN,DIRECT 0.3 MG/DL (<0.4); BILIRUBIN,TOTAL 1.1 MG/DL (0.3-1.2); TOTAL PROTEIN 7.6 G/DL (5.7-8.2)
[2024-12-28] MEDS: KETOROLAC 30 MG/ML 1ML VIAL IV ONE (16:26)
[2024-12-28] MEDS ORDERED: ISOVUE-370 76% 100ML VIAL As Ordered ONE (16:30)
[2024-12-28] MEDS: NS (Normal Saline) 0.9% 1,000 ML IV ONE (17:18)
[2024-12-28] MEDS ORDERED: PILL CUTTER 1 EACH XX ONE (17:29)
[2024-12-28] MEDS: SIMETHICONE 80MG CHEW TAB PO ONE (17:32)
[2024-12-28] MEDS: DICYCLOMINE INJ 20MG/2ML IM ONE (18:24)
[2024-12-28] MEDS ORDERED: DICY20TA20 PO (19:12)
[2024-12-28] MEDS: DICYCLOMINE 10 MG CAP PO ONE (19:30)
[2024-12-28 19:31] VITALS: BP 172/86; TEMP 98.1; O2SAT 98
== END 2024-12-28 19:40 | disposition home or self-care (01) ==
LOC: M ED 13:22
DX: R14.0 Abdominal distension (gaseous) (principal); F41.9 Anxiety disorder, unspecified; E03.9 Hypothyroidism, unspecified; K57.30 Diverticulosis of large intestine without perforation or abscess without bleeding; K76.0 Fatty (change of) liver, not elsewhere classified; Z79.899 Other long term (current) drug therapy; Z91.89 Other specified personal risk factors, not elsewhere classified; Z88.0 Allergy status to penicillin; Z88.8 Allergy status to other drugs, medicaments and biological substances
CPT/HCPCS: 74177; 80047; 80076; 83690; 85025; 93005; 96361; 96372; 96374; 99284; J0500; J1885; Q9967

== ENCOUNTER → 2024-12-29 | Outpatient (CLI) | payer MEDICARE, BC ==
[~2024-12-29] MED LIST changes: +DICY20TA20 PO
== END ==
LOC: M RAD 15:05
PROVIDERS: ATTEND Nurse Practitioner Family
DX: N28.1 Cyst of kidney, acquired (principal)

== ENCOUNTER 2025-01-30 10:17 | Emergency (ER) | payer MEDICARE, BC ==
[~2025-01-30] VITALS: Ht 170.2 cm; Wt 106.1 kg
[2025-01-30] MEDS: NS 500 ML IV ONE ×2 (10:35→11:40)
[2025-01-30] MEDS ORDERED: ISOVUE-370 76% 100ML VIAL As Ordered ONE (10:56)
[2025-01-30 11:03] LABS: VENOUS BASE EXCESS -0.4 (-2.0-2.0); VENOUS HCO3 24.8 MMOL/L (23.0-27.0); VENOUS O2 SATURATION 91.8 % (60.0-80.0); VENOUS PARTIAL PRESSURE CO2 42.5 mmHg (38.0-50.0); VENOUS PARTIAL PRESSURE O2 62.6 mmHg (30.0-50.0); VENOUS PH 7.384 UNITS (7.330-7.430); VENOUS TOTAL CO2 26.1 MMOL/L (24.0-28.0)
[2025-01-30 11:14] LABS: BASO % 0.3 % (0.0-1.0); EOS % 0.1 % (0.0-3.0); HEMOGLOBIN 15.8 g/dl (12.0-15.5); LYMPH # 0.6 10^3/uL (1.5-5.0); LYMPH % 5.4 % (24.0-44.0); MEAN CORPUSCULAR HGB CONC 34.3 g/dl (32.0-36.5); MONO # 0.7 10^3/uL (0.0-0.8); MONO % 6.1 % (2.0-8.0); NEUTROPHILS # 9.8 10^3/uL (1.5-8.5); NEUTROPHILS % 87.7 % (36.0-66.0); PLATELET COUNT, AUTOMATED 201 10^3/uL (150-450); RED BLOOD COUNT 4.79 10^6/uL (4.00-5.40); WHITE BLOOD COUNT 11.2 10^3/uL (4.0-10.0)
[2025-01-30 11:25] LABS: INR 1.04; PARTIAL THROMBOPLASTIN TIME 27.5 SECONDS (24.8-34.2); PROTHROMBIN TIME 13.9 SECONDS (12.5-14.5)
[2025-01-30 11:29] LABS: LIPASE 22 U/L (12-53)
[2025-01-30] MEDS: MORPHINE 2 MG/ML 1ML VIAL IV PRN (11:32)
[2025-01-30] MEDS: ONDANSETRON 4MG 2ML VIAL IV ONE (11:32)
[2025-01-30] MEDS: LIDOCAINE 2% 5ML JELLY UROJET TOP ONE (11:33)
[2025-01-30 11:37] LABS: ALBUMIN 4.1 G/DL (3.2-5.2); ALKALINE PHOSPHATASE 79 U/L (35-104); ALT/SGPT 45 U/L (7.0-40); AMYLASE < 20 U/L (30-118); AST/SGOT 37 U/L (<34); BILIRUBIN,DIRECT 0.4 MG/DL (<0.4); BILIRUBIN,TOTAL 1.1 MG/DL (0.3-1.2); BLOOD UREA NITROGEN 10 MG/DL (9-23); CALCIUM LEVEL 9.4 MG/DL (8.3-10.6); CARBON DIOXIDE LEVEL 27 MMOL/L (20-31); CHLORIDE LEVEL 103 MMOL/L (98-107); CREATININE FOR GFR 0.59 MG/DL (0.55-1.30); GLOMERULAR FILTRATION RATE > 60.0 (>39); GLUCOSE, FASTING 114 MG/DL (74-106); POTASSIUM SERUM 4.3 MMOL/L (3.5-5.1); SODIUM LEVEL 140 MMOL/L (136-145); TOTAL PROTEIN 7.4 G/DL (5.7-8.2)
[2025-01-30 12:39] LABS: KETONE, URINE AUTO RFX NEGATIVE (NEGATIVE); LEUKOCYTE ESTERASE UR AUTO RFX NEGATIVE (NEGATIVE); MUCUS, URINE RFX SMALL (NEGATIVE); NITRITE, URINE AUTO RFX NEGATIVE (NEGATIVE); RBC, URINE AUTO RFX 0 /HPF (0-3); SQUAM EPITHELIAL CELL UR AURFX 2 /HPF (0-6); WBC, URINE AUTO RFX 1 /HPF (0-3)
[2025-01-30] MEDS ORDERED: MORPHINE 2 MG/ML 1ML VIAL IV PRN (15:10)
[2025-01-30] MEDS ORDERED: D5W/0.45% SODIUM CHLORIDE 1,000 ML IV ONE (15:20)
[2025-01-30] MEDS: ACETAMINOPHEN *IV* 1,000 MG in IV 1 EA IV ONE (15:57)
[2025-01-30] MEDS: KETOROLAC 30 MG/ML 1ML VIAL IV ONE (15:58)
[2025-01-30] MEDS: D5W/0.45% SODIUM CHLORIDE 1,000 ML IV ONE (17:11)
[2025-01-30] MEDS ORDERED: PERC5TAB12 PO (18:01)
[2025-01-30] MEDS ORDERED: IBUP-1022 PO (18:11)
[2025-01-30 18:45] VITALS: O2SAT 90
[2025-01-30 18:46] VITALS: BP 132/61
[2025-01-30 18:51] VITALS: TEMP 97.4
== END 2025-01-30 18:56 | disposition home or self-care (01) ==
LOC: EDBD 10:17 → M ED 10:17
DX: S32.010A Wedge compression fracture of first lumbar vertebra, initial encounter for closed fracture (principal); S40.022A Contusion of left upper arm, initial encounter; S20.212A Contusion of left front wall of thorax, initial encounter; S30.0XXA Contusion of lower back and pelvis, initial encounter; K83.8 Other specified diseases of biliary tract; K86.89 Other specified diseases of pancreas; W19.XXXA Unspecified fall, initial encounter; Y92.009 Unspecified place in unspecified non-institutional (private) residence as the place of occurrence of the external cause; Y93.9 Activity, unspecified; Y99.9 Unspecified external cause status; D47.2 Monoclonal gammopathy; K80.20 Calculus of gallbladder without cholecystitis without obstruction; M51.360 Other intervertebral disc degeneration, lumbar region with discogenic back pain only; K76.0 Fatty (change of) liver, not elsewhere classified; K57.30 Diverticulosis of large intestine without perforation or abscess without bleeding; F17.200 Nicotine dependence, unspecified, uncomplicated; Z79.899 Other long term (current) drug therapy; Z88.8 Allergy status to other drugs, medicaments and biological substances; Z88.1 Allergy status to other antibiotic agents; Z91.89 Other specified personal risk factors, not elsewhere classified
CPT/HCPCS: 51701; 70450; 71045; 71260; 72110; 72125; 72131; 72170; 73060; 73502; 74177; 74181; 76705; 76830; 76856; 80047; 80048; 80076; 81001; 82150; 82803; 83605; 83690; 85025; 85610; 85730; 86850; 86900; 86901; 93005; 93041; 94760; 96361; 96365; 96366; 96375; 96376; 99285; J0131; J1885; J2405; Q9967

== ENCOUNTER → 2025-07-01 | Outpatient (CLI) | payer MEDICARE, BC ==
[~2025-07-01] MED LIST changes: -AMBI5TAB PO; +IBUP-1022 PO; +LIFI1DRO4 OU; +PERC5TAB12 PO; -XIID5DRO OU; +ZOLP-532 PO
== END ==
LOC: M PLAIMG 10:15
PROVIDERS: ATTEND Nurse Practitioner Family
DX: M54.6 Pain in thoracic spine (principal); G89.29 Other chronic pain; M47.814 Spondylosis without myelopathy or radiculopathy, thoracic region; M48.54XA Collapsed vertebra, not elsewhere classified, thoracic region, initial encounter for fracture

== ENCOUNTER → 2025-09-21 | Outpatient (CLI) | payer MEDICARE, BC ==
[~2025-09-21] MED LIST changes: -IBUP-1022 PO; +IBUP600T42 PO; +ZOLP10TA11; -ZOLP10TA2
== END ==
LOC: M PLAIMG 11:31
PROVIDERS: ATTEND Internal Medicine
DX: Z01.89 Encounter for other specified special examinations (principal); Z51.81 Encounter for therapeutic drug level monitoring; Z79.899 Other long term (current) drug therapy; L40.0 Psoriasis vulgaris

== ENCOUNTER → 2025-09-21 | Outpatient (REF) | payer MEDICARE, BC ==
[2025-09-21 15:34] LABS: HIV 1&2 SCREEN NEGATIVE (NEGATIVE)
[2025-09-21 15:43] LABS: HEPATITIS C VIRUS ABY INDEX < 0.02 INDEX (<0.8)
== END ==
LOC: M LAB REF 11:57
PROVIDERS: ATTEND Internal Medicine
DX: L40.0 Psoriasis vulgaris (principal); Z79.899 Other long term (current) drug therapy; Z51.81 Encounter for therapeutic drug level monitoring